=== PATIENT | male | born 1950 | race Caucasian/White ===

== ENCOUNTER → 2017-11-11 | Outpatient (CLI) | payer MEDICARE, OTHER ==
--- NOTE | 2017-11-11 15:32 | Diagnostic Imaging Report ---
PROCEDURE: US carotid duplex, bilateral. TECHNIQUE: Multiple real-time grayscale images were obtained over the carotid arteries in various projections, bilaterally. Additional duplex Doppler and color Doppler images were also obtained. INDICATION: Amaurosis fugax. FINDINGS: Minimal plaquing at the left carotid bifurcation is seen. Velocities are normal bilaterally. No velocity elevation or stenosis is detected. Both vertebral arteries show antegrade flow. Parameters based on the consensus panel Ashby-Scale and Doppler ultrasound criteria published February 2003, Radiology, Volume 229. DOPPLER (peak systolic velocity M/S Right Left CCA .72 .81 ICA Proximal .55 .53 ICA Mid .61 1.07 ICA Distal 1.04 .68 RATIO 1.4 1.3 ECA .79 1.12 VERT .49 .4 IMPRESSION: No evidence of a hemodynamically significant stenosis. Dictated by: Dictated on workstation # [id number]
== END ==
LOC: RAD 13:25
PROVIDERS: ATTEND Internal Medicine
DX: G45.3 Amaurosis fugax (principal); R03.0 Elevated blood-pressure reading, without diagnosis of hypertension
CPT/HCPCS: 93880

== ENCOUNTER → 2018-09-18 | Outpatient (CLI) | payer MEDICARE, OTHER ==
[2018-09-18 11:25] LABS: BASOPHILS # (AUTO) 0.1 10^3/uL (0.0-0.1); BASOPHILS % (AUTO) 2 % (0-10); EOSINOPHILS % (AUTO) 1 % (0-10); HEMATOCRIT 41 % (40-54); HEMOGLOBIN 14.1 G/DL (13.3-17.7); LYMPHOCYTES # (AUTO) 1.9 X 10^3 (1.0-4.0); LYMPHOCYTES % (AUTO) 33 % (12-44); MEAN CORPUSCULAR HEMOGLOBIN 30 PG (25-34); MEAN CORPUSCULAR HGB CONC 35 G/DL (32-36); MEAN CORPUSCULAR VOLUME 87 FL (80-99); MEAN PLATELET VOLUME 8.6 FL (7.4-10.4); MONOCYTES # (AUTO) 0.7 X 10^3 (0.0-1.0); MONOCYTES % (AUTO) 12 % (0-12); NEUTROPHILS % (AUTO) 52 % (42-75); PLATELET COUNT 132 10^3/uL (130-400); RED CELL DISTRIBUTION WIDTH 13.9 % (10.0-14.5); WHITE BLOOD COUNT 5.8 10^3/uL (4.3-11.0)
[2018-09-18 12:04] LABS: EOSINOPHILS % (MANUAL) 5 %; LYMPHOCYTES % (MANUAL) 28 %; MONOCYTES % (MANUAL) 8 %; NEUTROPHILS % (MANUAL) 59 %
[2018-09-18 12:16] LABS: ALANINE AMINOTRANSFERASE 59 U/L (0-55); ALBUMIN 4.1 GM/DL (3.2-4.5); ALKALINE PHOSPHATASE 83 U/L (40-136); BILIRUBIN,TOTAL 1.1 MG/DL (0.1-1.0); BUN/CREATININE RATIO 15; CALCIUM 9.2 MG/DL (8.5-10.1); CARBON DIOXIDE 28 MMOL/L (21-32); CHLORIDE 106 MMOL/L (98-107); CREATININE SERUM 1.08 MG/DL (0.60-1.30); GFR ESTIMATED > 60; GLUCOSE 141 MG/DL (70-105); POTASSIUM 4.4 MMOL/L (3.6-5.0); SODIUM 139 MMOL/L (135-145); TOTAL PROTEIN 6.6 GM/DL (6.4-8.2)
== END ==
LOC: LAB 11:04
PROVIDERS: ATTEND Internal Medicine
DX: R50.9 Fever, unspecified (principal); M79.10 Myalgia, unspecified site
CPT/HCPCS: 36415; 80053; 85007; 85027; 87804

== ENCOUNTER 2020-09-24 03:38 | Emergency (ER) | payer MEDICARE, OTHER ==
[~2020-09-24] VITALS: Ht 180 cm; Wt 90.7 kg
[2020-09-24] MEDS ORDERED: methylPREDNISolone 125 MG (Solu-MEDROL) VIAL IV STA (04:19)
[2020-09-24] MEDS ORDERED: FAMOTIDINE 20MG/2ML IV (PEPCID) IV STA (04:19)
[2020-09-24] MEDS ORDERED: CLINDAMYCIN 600 MG/50 ML IVPB 50 ML IV ONE (04:30)
[2020-09-24 05:13] LABS: ALBUMIN 4.2 GM/DL (3.2-4.5); CHLORIDE 108 MMOL/L (98-107); POTASSIUM 3.9 MMOL/L (3.6-5.0); SODIUM 144 MMOL/L (135-145)
[2020-09-24 05:14] LABS: CALCIUM 9.3 MG/DL (8.5-10.1)
[2020-09-24 05:16] LABS: GLUCOSE 104 MG/DL (70-105)
[2020-09-24 05:17] LABS: BILIRUBIN,TOTAL 0.7 MG/DL (0.1-1.0); CARBON DIOXIDE 23 MMOL/L (21-32)
[2020-09-24 05:18] LABS: BASOPHILS % (AUTO) 0 % (0-10); EOSINOPHILS # (AUTO) 0.2 10^3/uL (0.0-0.3); EOSINOPHILS % (AUTO) 3 % (0-10); HEMATOCRIT 47 % (40-54); HEMOGLOBIN 16.1 g/dL (13.3-17.7); LYMPHOCYTES # (AUTO) 0.9 10^3/uL (1.0-4.0); LYMPHOCYTES % (AUTO) 11 % (12-44); MEAN CORPUSCULAR HEMOGLOBIN 30 pg (25-34); MEAN CORPUSCULAR HGB CONC 34 g/dL (32-36); MEAN CORPUSCULAR VOLUME 88 fL (80-99); MEAN PLATELET VOLUME 9.1 fL (9.0-12.2); MONOCYTES # (AUTO) 0.7 10^3/uL (0.0-1.0); MONOCYTES % (AUTO) 8 % (0-12); NEUTROPHILS # (AUTO) 6.8 10^3/uL (1.8-7.8); NEUTROPHILS % (AUTO) 78 % (42-75); PLATELET COUNT 177 10^3/uL (130-400); WHITE BLOOD COUNT 8.7 10^3/uL (4.3-11.0)
[2020-09-24 05:19] LABS: ALKALINE PHOSPHATASE 56 U/L (40-136); CREATININE SERUM 0.89 MG/DL (0.60-1.30); GFR ESTIMATED > 60
[2020-09-24 05:20] LABS: BUN/CREATININE RATIO 15
[2020-09-24 05:22] LABS: ALANINE AMINOTRANSFERASE 29 U/L (0-55)
[2020-09-24] MEDS ORDERED: FAMO40TA72 PO (05:48)
[2020-09-24] MEDS ORDERED: CLIN300C12 PO (05:48)
[2020-09-24] MEDS ORDERED: PRD20T PO (05:48)
--- NOTE | 2020-09-24 05:48 | ED Integumentary General ---
General Chief Complaint: Bite-Animal/Human/Insect Stated Complaint: WASP STING,RT HAND SWELLING Nursing Triage Note: C/O INCREASED RIGHT HAND/ARM SWELLING/DRAINAGE 2 DAYS AFTER WASP STING. Source: patient History of Present Illness Date Seen by Provider: Sep 24, 2020 Time Seen by Provider: 04:12 Initial Comments PT ARRIVES VIA POV FROM HOME--DROVE SELF HERE PT STATES ON SATURDAY MORNING 09/22/20, HE REACHED INTO HIS MAILBOX AND WAS STUNG BY A WASP ON RIGHT FOREARM HAS HAD INCREASED ITCHING, SWELLING AND REDNESS SINCE LAST PM--NOW ENTIRE FOREARM AND HAND ARE SWOLLEN UP TO ELBOW, AND HAS BLISTERS AROUND THE SITE OF THE STING NO PARESTHESIAS OR MOTOR DEFICITS PUT ICE ON IT A COUPLE OF HOURS AGO, AND TOOK ASPIRIN LAST NIGHT, OTHERWISE HAS NOT TAKEN ANYTHING ELSE FOR SYMPTOMS NO PARESTHESIAS OR MOTOR DEFICITS NO FEVER NO SWELLING TO LIPS, TONGUE OR THROAT NO DIFFICULTY BREATHING OR SWALLOWING OR BREATHING TETANUS IS UP TO DATE PT IS RIGHT HANDED HAS BEEN STUNG BY BEES BEFORE, AND NOT HAD THIS REACTION HAS NEVER BEEN STUNG BY A WASP PCP: DR. COY Allergies and Home Medications Allergies Coded Allergies: No Known Allergies (Verified Allergy, Unknown, 04/23/06) Home Medications Clindamycin HCl 300 Mg Capsule, 300 MG PO QID Prescribed by: LEXIE DUMONT on 09/24/20547 Famotidine 40 Mg Tablet, 40 MG PO DAILY Prescribed by: LEXIE DUMONT on 09/24/20547 Prednisone 20 Mg Tab, 40 MG PO DAILY Prescribed by: LEXIE DUMONT on 09/24/20547 Patient Home Medication List Home Medication List Reviewed: Yes Review of Systems Review of Systems Constitutional: no symptoms reported EENTM: no symptoms reported Respiratory: no symptoms reported Cardiovascular: no symptoms reported Gastrointestinal: no symptoms reported Genitourinary: no symptoms reported Musculoskeletal: see HPI Skin: see HPI Psychiatric/Neurological: No Symptoms Reported Endocrine: No Symptoms Reported Hematologic/Lymphatic: No Symptoms Reported Past Vnprure-Oabgno-Vybydp Hx Past Med/Social Hx: Reviewed and Corrections made Patient Social History Alcohol Use: Occasionally Uses Alcohol Beverage of Choice: Beer 2nd Hand Smoke Exposure: No Recent Infectious Disease Expo: No Recent Hopitalizations: No Immunizations Up To Date Tetanus Booster (TDap): Less than 5yrs Seasonal Allergies Seasonal Allergies: No Past Medical History Surgeries: Yes Orthopedic Respiratory: No Cardiac: Yes High Cholesterol, Hypertension Neurological: No Genitourinary: No Gastrointestinal: No Musculoskeletal: No Endocrine: No HEENT: No Cancer: No Psychosocial: No Integumentary: No Blood Disorders: No Physical Exam Vital Signs Vital Signs - First Documented 09/24/20 03:58 Temp 36.1 Pulse 54 Resp 16 B/P (MAP) 156/110 (125) Pulse Ox 97 O2 Delivery Room Air Capillary Refill : Less Than 3 Seconds General Appearance: WD/WN, no apparent distress, other (VERY ANXIOUS) HEENT: normal ENT inspection, pharynx normal Neck: normal inspection Cardiovascular: normal peripheral pulses, regular rate, rhythm, no murmur Respiratory: normal breath sounds, no respiratory distress, no accessory muscle use Extremities: other (RIGHT ARM WITH MODERATE SWELLING, WARMTH AND ERYTHEMA FROM ELBOW DOWN TO FINGERTIPS. DORSAL ASPECT OF MID FOREARM WITH CLUSTER OF BLISTERS AROUND STING SITE, SOME RUPTURED WITH SEROUS DRAINAGE. NO STREAKS, NO FLUCTUANCE. MOTOR/SENSORY/VASCULAR INTACT) Neurologic/Psychiatric: hydrostatic tubing tester II-XII nml as tested, no motor/sensory deficits, alert, oriented x 3 Skin: warm/dry, other ( ABOVE) Progress/Results/Core Measures Results/Orders Lab Results Laboratory Tests Test 09/24/20 04:36 Range/Units White Blood Count 8.7 4.3-11.0 10^3/uL Red Blood Count 5.36 4.30-5.52 10^6/uL Hemoglobin 16.1 13.3-17.7 g/dL Hematocrit 47 40-54 % Mean Corpuscular Volume 88 80-99 fL Mean Corpuscular Hemoglobin 30 25-34 pg Mean Corpuscular Hemoglobin Concent 34 32-36 g/dL Red Cell Distribution Width 12.4 10.0-14.5 % Platelet Count 177 130-400 10^3/uL Mean Platelet Volume 9.1 9.0-12.2 fL Immature Granulocyte % (Auto) 1 % Neutrophils (%) (Auto) 78 H 42-75 % Lymphocytes (%) (Auto) 11 L 12-44 % Monocytes (%) (Auto) 8 0-12 % Eosinophils (%) (Auto) 3 0-10 % Basophils (%) (Auto) 0 0-10 % Neutrophils # (Auto) 6.8 1.8-7.8 10^3/uL Lymphocytes # (Auto) 0.9 L 1.0-4.0 10^3/uL Monocytes # (Auto) 0.7 0.0-1.0 10^3/uL Eosinophils # (Auto) 0.2 0.0-0.3 10^3/uL Basophils # (Auto) 0.0 0.0-0.1 10^3/uL Immature Granulocyte # (Auto) 0.1 0.0-0.1 10^3/uL Erythrocyte Sedimentation Rate 4 0-30 MM/HR Sodium Level 144 135-145 MMOL/L Potassium Level 3.9 3.6-5.0 MMOL/L Chloride Level 108 H 98-107 MMOL/L Carbon Dioxide Level 23 21-32 MMOL/L Anion Gap 13 5-14 MMOL/L Blood Urea Nitrogen 13 7-18 MG/DL Creatinine 0.89 0.60-1.30 MG/DL Estimat Glomerular Filtration Rate > 60 BUN/Creatinine Ratio 15 Glucose Level 104 70-105 MG/DL Calcium Level 9.3 8.5-10.1 MG/DL Corrected Calcium 9.1 8.5-10.1 MG/DL Total Bilirubin 0.7 0.1-1.0 MG/DL Aspartate Amino Transf (AST/SGOT) 19 5-34 U/L Alanine Aminotransferase (ALT/SGPT) 29 0-55 U/L Alkaline Phosphatase 56 40-136 U/L C-Reactive Protein High Sensitivity 0.28 0.00-0.50 MG/DL Total Protein 7.0 6.4-8.2 GM/DL Albumin 4.2 3.2-4.5 GM/DL My Orders Orders - LEXIE DUMONT DO Ed Iv/Invasive Line Start (09/24/20 04:19) Cbc With Automated Diff (09/24/20 04:19) Comprehensive Metabolic Panel (09/24/20 04:19) Hs C Reactive Protein (09/24/20 04:19) Erythrocyte Sedimentation Rate (09/24/20 04:19) Famotidine Injection (Pepcid Injection) (09/24/20 04:19) Methylprednisolone Sod Succ (Solu-Medrol (09/24/20 04:19) Clindamycin 600 Mg/50 Ml Ivpb (Cleocin P (09/24/20 04:30) Medications Given in ED Vital Signs/I&O 09/24/20 09/24/20 03:58 05:50 Temp 36.1 36.0 Pulse 54 59 Resp 16 16 B/P (MAP) 156/110 (125) 144/97 (125) Pulse Ox 97 98 O2 Delivery Room Air Room Air Blood Pressure Mean: 125 Progress Progress Note : Progress Note GIVEN IV SOLU-MEDROL, PEPCID AND CLINDAMYCIN WITH MUCH IMPROVEMENT IN SWELLING AND ERYTHEMA AND ITCHING SYLVIAL HELD PT DROVE HIMSELF HERE Departure Impression Primary Impression: WASP STING RIGHT FOREARM Additional Impression: LOCAL REACTION TO WASP STING VS CELLULITIS Disposition: HOME, SELF-CARE Condition: Improved Departure-Patient Inst. Decision time for Depature: 05:45 Referrals: SCOTT COY MD (PCP/Family) Primary Care Physician Patient Instructions: Cellulitis (Skin Infection), Adult (DC), Insect Bites and Stings (DC) Add. Discharge Instructions: COOL COMPRESSES TO AREA AT 20 MINUTE INTERVALS ELEVATE ARM MUCH POSSIBLE TYLENOL NEEDED FOR PAIN CLARITIN 10 MG DAILY FOR RASH AND ITCHING FOLLOW UP WITH YOUR DR ON SATURDAY IF NO BETTER, RETURN TO ER IF WORSE All discharge instructions reviewed with patient and/or family. Voiced understanding. Scripts Clindamycin HCl (Clindamycin HCl) 300 Mg Capsule 300 MG PO QID for 7 Days, #28 CAP Prov: LEXIE DUMONT DO 09/24/20 Famotidine (Pepcid) 40 Mg Tablet 40 MG PO DAILY, #10 TAB Prov: LEXIE DUMONT DO 09/24/20 Prednisone (Prednisone) 20 Mg Tab 40 MG PO DAILY, #6 TAB 0 Refills Prov: LEXIE DUMONT DO 09/24/20 LEXIE DUMONT DO Sep 24, 2020 05:48
[2020-09-24 05:50] VITALS: BP 144/97
[2020-09-24 06:13] LABS: ERYTHROCYTE SEDIMENTATION RATE 4 MM/HR (0-30)
== END 2020-09-24 05:55 | disposition home or self-care (01) ==
LOC: EDUNIT# 03:38 → ER 03:42
DX: T63.461A Toxic effect of venom of wasps, accidental (unintentional), initial encounter (principal); I10 Essential (primary) hypertension; Z79.52 Long term (current) use of systemic steroids
CPT/HCPCS: 36415; 80053; 85025; 85652; 86141

== ENCOUNTER → 2022-03-09 | Outpatient (CLI) | payer MEDICARE, OTHER ==
[~2022-03-09] MED LIST: CATHETER FLUSH 10 ML SYR IV PRN; CLIN-144 PO; FAMO40TA72 PO; HOLD METFORMIN - RECEIVED CONTRAST 20 ML VIAL IV SCH; IOHEXOL 350 MG/ML 100 ML (OMNIPAQUE 350) VIAL IV ONE; NS 100 ML (IVPB) BAG IV ONE; PRD20T PO
--- NOTE | 2022-03-09 13:44 | Diagnostic Imaging Report ---
PROCEDURE: CT abdomen and pelvis with contrast. TECHNIQUE: Multiple contiguous axial images were obtained through the abdomen and pelvis after administration of intravenous contrast. Auto Exposure Controls were utilized during the CT exam to meet ALARA standards for radiation dose reduction. All CT scans use one or more of the following dose optimizing techniques: automated exposure control, MA and/or KvP adjustment based on patient size and exam type or iterative reconstruction. INDICATION: Right-sided pain. FINDINGS: Seen on coronal reconstruction images 68 and 69 as well as axial image 167, there is a minute punctate 1 mm calcification associated with the lumen of the distal right ureter at the level of the ureteral orifice. The stone results in minimal right-sided ureteral ectasia and minimal right-sided caliectasis with mild right perinephric stranding. No urinoma. No contrast extravasation and at least partially obstructing tiny stone near the UVJ is presumed to account for these findings. There were no findings of appendicitis. There are simple left renal cortical cysts showing no complexity. Fatty liver with few scattered hepatic cysts noted. No acute biliary, splenic, adrenal or pancreatic pathology. There is noninflamed sigmoid diverticulosis and a tiny fatty noninflamed umbilical hernia. IMPRESSION: A minute punctate 1 mm calcification distal right ureter near the ureteral orifice results in minimal upstream right-sided ureteral ectasia and caliectasis with very mild perinephric stranding. No francisco j hydronephrosis. No other acute appearing abnormality. Dictated by: Dictated on workstation # [id number]
== END ==
LOC: RAD 13:30
PROVIDERS: ATTEND Nurse Practitioner Family
DX: N28.89 Other specified disorders of kidney and ureter (principal)
CPT/HCPCS: 74177

== ENCOUNTER 2022-07-18 19:29 | Emergency (ER) | payer MEDICARE, OTHER ==
[~2022-07-18] VITALS: Ht 180.4 cm; Wt 91.0 kg
[~2022-07-18 19:29] MED LIST changes: -CATHETER FLUSH 10 ML SYR IV PRN; -HOLD METFORMIN - RECEIVED CONTRAST 20 ML VIAL IV SCH; -IOHEXOL 350 MG/ML 100 ML (OMNIPAQUE 350) VIAL IV ONE; -NS 100 ML (IVPB) BAG IV ONE
[2022-07-18 19:35] VITALS: BP 135/78
--- NOTE | 2022-07-18 19:44 | ED Upper Extremity ---
General Chief Complaint: Laceration Stated Complaint: LACERATION ON RIGHT FINGER Nursing Triage Note: PT AMB TO ED BY POV WITH C/O LAC TO R HAND. 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 Source: patient Exam Limitations: no limitations (STERLING SMALLS) History of Present Illness Date Seen by Provider: Jul 18, 2022 Time Seen by Provider: 19:41 Initial Comments Patient is a 72-year-old male who presents ED with a laceration in the web of his right little finger and ring finger. This occurred 15 minutes ago. States he was washing dishes and was washing a broken the measuring cup. [place] a sharp pain and noted some bleeding with a laceration in the web between his right little finger and ring finger. Bleeding controlled on arrival. He states he is up-to-date on his tetanus within the past 5 years. Normal active range of motion of the digits. (STERLING SMALLS) Allergies and Home Medications Allergies Coded Allergies: Lewis Known Allergies (Verified Allergy, Unknown, 04/23/06) Patient Home Medication List Home Medication List Reviewed: Yes (STERLING SMALLS) Clindamycin HCl (Clindamycin HCl) 300 Mg Capsule, 300 MG PO QID Prescribed by: LEXIE DUMONT on 09/24/20547 Famotidine (Pepcid) 40 Mg Tablet, 40 MG PO DAILY Prescribed by: LEXIE DUMONT on 09/24/20547 Prednisone (Prednisone) 20 Mg Tab, 40 MG PO DAILY Prescribed by: LEXIE DUMONT on 09/24/20547 Review of Systems Constitutional: No chills, No diaphoresis, No malaise, No weakness EENTM: No double vision Respiratory: No cough, No dyspnea on exertion Cardiovascular: No chest pain Gastrointestinal: No abdominal pain, No dysphagia, No nausea, No vomiting Genitourinary: No discharge Musculoskeletal: No back pain, No joint pain, No joint swelling; muscle pain Skin: change in color (STERLING SMALLS) All Other Systems Reviewed Negative Unless Noted: Yes (STERLING SMALLS) Past Fejmwql-Vghbbo-Exiqrm Hx Immunizations Up To Date Tetanus Booster (TDap): Less than 5yrs (STERLING SMALLS) Seasonal Allergies Seasonal Allergies: No (STERLING SMALLS) Past Medical History Surgeries: Yes Orthopedic Respiratory: No Cardiac: Yes High Cholesterol, Hypertension Neurological: No Genitourinary: No Gastrointestinal: No Musculoskeletal: No Endocrine: No HEENT: No Cancer: No Psychosocial: No Integumentary: No Blood Disorders: No (STERLING SMALLS) Physical Exam Vital Signs Vital Signs - First Documented 07/18/22 19:35 Temp 37.0 Pulse 89 Resp 16 B/P (MAP) 135/78 (97) Pulse Ox 94 O2 Delivery Room Air (JULIA,LEXIE K DO) Vital Signs Capillary Refill : Less Than 3 Seconds (STERLING SMALLS) Height, Weight, BMI Height: '" Weight: lbs. oz. kg; 27.00 BMI Method: General Appearance: WD/WN, no apparent distress HEENT: PERRL/EOMI, normal ENT inspection, TMs normal, pharynx normal Neck: non-tender, full range of motion, supple Cardiovascular: regular rate, rhythm, no edema, no gallop, no JVD, no murmur Respiratory: chest non-tender, lungs clear, normal breath sounds, no respiratory distress, no accessory muscle use Gastrointestinal: normal bowel sounds, non tender, no organomegaly Back: normal inspection, no CVA tenderness Shoulder: normal inspection, non-tender Elbow/Forearm: normal inspection, non-tender, no evidence of injury, Right Wrist: Yes normal inspection, Yes non-tender Hand: laceration (1 cm laceration of the web between the right little finger and ring finger. No active bleeding. No muscular or tendon vomit. 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, no motor/sensory deficits, alert, normal mood/affect, oriented x 3 Skin: other (1 cm laceration of the web between the right little finger and ring finger.) (STERLING SMALLS) Procedures/Interventions Wound Location: Upper Extremities Other Wound Location right little finger Wound Length (cm): 1 Wound's Depth, Shape: superficial, sub Q Wound Explored: clean Irrigated w/ Saline (ccs): 200 Betadine Prep?: Yes Anesthesia: 1% Lidocaine Volume Anesthetic (ccs): 2 Wound Debrided: minimal Suture: Ethlion Suture Size: 5-0 Number of Sutures: 4 Layer Closure?: 1 Sterile Dressing Applied?: Yes Four Ethilon 5-0 sutures were placed (STERLING SMALLS) Progress/Results/Core Measures Results/Orders Medications Given in ED Current Medications Medications Dose Ordered Sig/Tamiko Route Start Time Stop Time Status Last Admin Dose Admin Lidocaine HCl 20 ml ONCE ONCE INJ 07/18/22 19:45 07/18/22 19:46 DC 07/18/22 20:04 20 ML (LEXIE DUMONT DO) Vital Signs/I&O 07/18/22 19:35 Temp 37.0 Pulse 89 Resp 16 B/P (MAP) 135/78 (97) Pulse Ox 94 O2 Delivery Room Air (LEXIE DUMONT DO) Blood Pressure Mean: 97 Departure Communication (PCP) Patient with a laceration between the web of the right little finger and ring finger. Laceration is more on the right little finger. Four 5-0 Ethilon sutures were placed. Irrigated with normal saline and Shur-Clens. No tendon or muscular involvement. No active bleeding. Up-to-date on his tetanus. Remove sutures in 10 days. Keep the area clean. Neosporin twice a day. Keep the area bandaged to allow healing and to prevent sutures from tearing. Return if symptoms worsen such as redness, swelling (STERLING SMALLS) Impression Primary Impression: Finger laceration Disposition: 01 HOME, SELF-CARE Condition: Stable Departure-Patient Inst. Decision time for Depature: 19:43 (STERLING SMALLS) Referrals: SCOTT COY MD (PCP/Family) Primary Care Physician Patient Instructions: Laceration Repair With Stitches ED Add. Discharge Instructions: Remove sutures in 10 days. Keep the area clean with soap and water. keep the area covered and avoid excessive movement so the sutures do not tear Neosporin twice a day. All discharge instructions reviewed with patient and/or family. Voiced understanding. ATTENDING PHYSICIAN NOTE: I WAS PHYSICALLY PRESENT ER PHYSICIAN, BUT I WAS NOT INVOLVED IN ANY DECISION MAKING OR ANY CARE OF THIS PATIENT, AND I AM NOT COLLABORATING PHYSICIAN. (LEXIE DUMONT DO) STERLING SMALLS Jul 18, 2022 19:44 LEXIE DUMONT DO Jul 19, 2022 01:47
[2022-07-18] MEDS ORDERED: LIDOCAINE 1% INJ 20 ML VIAL INJ ONE (19:45)
== END 2022-07-18 20:10 | disposition home or self-care (01) ==
LOC: EDUNIT# 19:29 → ER 19:32
DX: S61.216A Laceration without foreign body of right little finger without damage to nail, initial encounter (principal); W26.9XXA Contact with unspecified sharp object(s), initial encounter; Y93.G1 Activity, food preparation and clean up
CPT/HCPCS: 12041

== ENCOUNTER 2022-07-27 09:56 | Emergency (ER) | payer MEDICARE, OTHER ==
[~2022-07-27] VITALS: Ht 180 cm; Wt 92.0 kg
[2022-07-27 10:30] VITALS: BP 167/77
== END 2022-07-27 10:35 | disposition home or self-care (01) ==
LOC: EDUNIT# 09:56 → ER 09:57
DX: Z48.02 Encounter for removal of sutures (principal)

== ENCOUNTER → 2022-12-07 | Outpatient (CLI) | payer MEDICARE, OTHER ==
[2022-12-07 10:01] LABS: BASOPHILS % (AUTO) 0 % (0-10); EOSINOPHILS # (AUTO) 0.1 10^3/uL (0.0-0.3); EOSINOPHILS % (AUTO) 2 % (0-10); HEMATOCRIT 46 % (40-54); HEMOGLOBIN 16.1 g/dL (13.3-17.7); LYMPHOCYTES # (AUTO) 1.3 10^3/uL (1.0-4.0); LYMPHOCYTES % (AUTO) 15 % (12-44); MEAN CORPUSCULAR HEMOGLOBIN 31 pg (25-34); MEAN CORPUSCULAR HGB CONC 35 g/dL (32-36); MEAN CORPUSCULAR VOLUME 87 fL (80-99); MEAN PLATELET VOLUME 8.8 fL (9.0-12.2); MONOCYTES # (AUTO) 0.7 10^3/uL (0.0-1.0); MONOCYTES % (AUTO) 8 % (0-12); NEUTROPHILS # (AUTO) 6.1 10^3/uL (1.8-7.8); NEUTROPHILS % (AUTO) 74 % (42-75); PLATELET COUNT 170 10^3/uL (130-400); WHITE BLOOD COUNT 8.3 10^3/uL (4.3-11.0)
[2022-12-07 10:21] LABS: ALBUMIN 4.3 GM/DL (3.2-4.5); CALCIUM 9.4 MG/DL (8.5-10.1); CREATININE SERUM 0.97 MG/DL (0.60-1.30); POTASSIUM 4.1 MMOL/L (3.6-5.0); TOTAL PROTEIN 6.9 GM/DL (6.4-8.2)
== END ==
LOC: LAB 09:38
PROVIDERS: ATTEND Internal Medicine
DX: R10.9 Unspecified abdominal pain (principal)
CPT/HCPCS: 80053; 85025; 86141; G0103; 36415; 84153

== ENCOUNTER → 2022-12-17 | Outpatient (CLI) | payer MEDICARE, OTHER ==
[~2022-12-17] MED LIST changes: +HOLD METFORMIN - RECEIVED CONTRAST 20 ML VIAL IV SCH; +IOHEXOL 350 MG/ML 100 ML (OMNIPAQUE 350) VIAL IV ONE; +NS 100 ML (IVPB) BAG IV ONE; +ROSU10TA28 PO
--- NOTE | 2022-12-17 08:57 | Diagnostic Imaging Report ---
PROCEDURE: CT abdomen and pelvis with contrast. TECHNIQUE: Multiple contiguous axial images were obtained through the abdomen and pelvis after administration of intravenous contrast. Auto Exposure Controls were utilized during the CT exam to meet ALARA standards for radiation dose reduction. All CT scans use one or more of the following dose optimizing techniques: automated exposure control, MA and/or KvP adjustment based on patient size and exam type or iterative reconstruction. INDICATION: Left-sided abdominal pain, increasing in severity. Comparison is made with prior CT from 03/09/2022. Lung bases are clear. Low-attenuation throughout the liver is noted consistent with hepatic steatosis. There are numerous low-attenuation lesions in the liver, too small to characterize but likely small cysts. Gallbladder is unremarkable. There is no biliary duct dilatation. Pancreas and spleen are unremarkable. No adrenal mass is detected. Bilateral renal cysts are noted, largest lower pole left kidney, similar to prior exam measuring 6.5 cm. No definite renal calculi or hydronephrosis is identified. Aorta is calcified but nonaneurysmal. Bowel loops are normal caliber. There is diverticulosis of the sigmoid but no evidence of acute diverticulitis. The bladder is unremarkable. Prostate is mildly enlarged. There are fat-containing inguinal hernias bilaterally. There is also small fat-containing umbilical hernia. Bony structures demonstrate postoperative changes to the right hip. A lytic lesion in the left iliac bone appears similar to prior CT. IMPRESSION: 1. Hepatic steatosis with hepatic and renal cysts. No calculi or hydronephrosis is identified. 2. Uncomplicated diverticulosis. 3. Fat-containing umbilical and bilateral inguinal hernias. Dictated by: Dictated on workstation # [id number]
== END ==
LOC: RAD 07:43
PROVIDERS: ATTEND Internal Medicine
DX: K76.0 Fatty (change of) liver, not elsewhere classified (principal); N28.1 Cyst of kidney, acquired; K57.90 Diverticulosis of intestine, part unspecified, without perforation or abscess without bleeding; K40.20 Bilateral inguinal hernia, without obstruction or gangrene, not specified as recurrent; K42.9 Umbilical hernia without obstruction or gangrene
CPT/HCPCS: 74177

== ENCOUNTER 2022-12-19 05:43 | Outpatient (CLI) | payer MEDICARE, OTHER ==
[~2022-12-19] VITALS: Ht 180.3 cm; Wt 95.0 kg
[~2022-12-19 05:43] MED LIST changes: -HOLD METFORMIN - RECEIVED CONTRAST 20 ML VIAL IV SCH; -IOHEXOL 350 MG/ML 100 ML (OMNIPAQUE 350) VIAL IV ONE; -NS 100 ML (IVPB) BAG IV ONE; -ROSU10TA28 PO
[2022-12-19] MEDS ORDERED: ROSU10TA28 PO (09:48)
== END 2022-12-19 09:57 | disposition home or self-care (01) ==
LOC: PREOP 05:43
PROVIDERS: ATTEND Internal Medicine
DX: Z01.818 Encounter for other preprocedural examination (principal)